=== PATIENT | female | born 1945 | race Hispanic/Latino ===

== ENCOUNTER 2016-11-26 14:02 | Emergency (ER) | payer OTHER, MEDICARE ==
[2016-11-26 15:08] VITALS: BP 135/71
[2016-11-26] MEDS ORDERED: TORADOL IM ONE (17:04)
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
== END 2016-11-26 17:51 | disposition home or self-care (01) ==
LOC: ED 14:02
DX: S80.12XA Contusion of left lower leg, initial encounter (principal); V89.2XXA Person injured in unspecified motor-vehicle accident, traffic, initial encounter; Y92.488 Other paved roadways as the place of occurrence of the external cause; Y93.89 Activity, other specified; Y99.8 Other external cause status; I48.91 Unspecified atrial fibrillation; Z88.8 Allergy status to other drugs, medicaments and biological substances
CPT/HCPCS: 96372; 99283; J1885